=== PATIENT | female | born 1940 | race Caucasian/White ===

== ENCOUNTER 2018-06-03 09:38 | Day surgery (SDC) | payer MEDICARE, OTHER ==
[~2018-06-03 09:38] MED LIST: BALANCED SALT IRR; CEFAZOLIN 1 GM INJ; GENTAMICIN IRR; LIDOCAINE 2% (SDV) 5 ML INJ; VANCOMYCIN IRR; [UNRECOGNIZED DRUG - OTHER] IRR
[2018-06-03] MEDS ORDERED: LIDOCAINE 1% (MPF) 10 ML INJ (10:01)
[2018-06-03] MEDS ORDERED: LIDOCAINE 2% (SDV) 5 ML INJ (10:02)
[2018-06-03] MEDS ORDERED: TETRACAINE 0.5% 4 ML OPH (10:14)
[2018-06-03] MEDS ORDERED: BUPIVACAINE 0.5% (SDV) 30 ML INJ (10:14)
[2018-06-03] MEDS ORDERED: SODIUM HYALURONATE 14 MG/ML SYG (10:22)
[2018-06-03] MEDS ORDERED: HYALURONIDASE 150 UNIT/ML VIAL (10:30)
[2018-06-03] MEDS: TROPICAMIDE 1% 3 ML OPH OPER (10:38)
[2018-06-03] MEDS: CYCLOPENTOLATE 1% 2 ML OPH OPER (10:38)
[2018-06-03] MEDS: PHENYLephrine 2.5% 15 ML OPH OPER (10:39)
[2018-06-03] MEDS: MOXIFLOXACIN 0.5% 3 ML OPH OPER (10:39)
[2018-06-03] MEDS: PROPARACAINE 0.5% 15 ML OPH OPER (10:39)
[2018-06-03] MEDS ORDERED: TOBRAMYCIN 0.3% 3.5 GM OPH OINT (11:07)
[2018-06-03] MEDS: LIDOCAINE 1% (MPF) 10 ML INJ INJ (12:15)
[2018-06-03] MEDS: TOBRAMYCIN/DEXAMETH 3.5 GM OPH OINT RIGHT EYE (13:40)
[2018-06-03] MEDS ORDERED: HYDROmorphONE 1 MG/5 ML IV SYRINGE IV (14:00)
[2018-06-03] MEDS ORDERED: FENTAnyl 50 MCG/ML VIAL IV (14:00)
[2018-06-03] MEDS ORDERED: BSS PLUS 500 ML + VANCO 10MG, GENT 4 MG, EPI 0.25 MG IRR (14:00)
[2018-06-04] MEDS ORDERED: MOXIFLOXACIN 0.5% 3 ML OPH RIGHT EYE (09:00)
[2018-06-04] MEDS ORDERED: PREDNISOLONE ACET 1% 5 ML OPH RIGHT EYE (09:00)
[2018-06-04] MEDS ORDERED: PROPOFOL 20 ML (10:29)
[2018-06-04] MEDS ORDERED: MIDAZOLAM 1 MG/ML 2 ML INJ (10:29)
== END 2018-06-03 16:16 | disposition home or self-care (01) ==
LOC: SDS 09:38
DX: H25.11 Age-related nuclear cataract, right eye (principal); E78.5 Hyperlipidemia, unspecified; K21.9 Gastro-esophageal reflux disease without esophagitis; I11.0 Hypertensive heart disease with heart failure; I50.9 Heart failure, unspecified
CPT/HCPCS: 66984

== ENCOUNTER 2018-07-01 07:51 | Day surgery (SDC) | payer MEDICARE, OTHER ==
[2018-07-01 08:59] LABS: ADD MAN DIFF? NO
[2018-07-01] MEDS ORDERED: BALANCED SALT IRR (09:00)
[2018-07-01] MEDS ORDERED: GENTAMICIN IRR (09:00)
[2018-07-01] MEDS ORDERED: [UNRECOGNIZED DRUG - OTHER] IRR (09:00)
[2018-07-01] MEDS ORDERED: VANCOMYCIN IRR (09:00)
[2018-07-01 09:01] LABS: BASOPHIL # 0.1 10^3/ul (0.0-0.1); EOSINOPHILS # 0.1 10^3/ul (0.0-0.5); EOSINOPHILS % 1.5 % (0.0-7.0); HEMATOCRIT 40.4 % (37.0-47.0); HEMOGLOBIN 13.5 g/dl (12.0-16.0); LYMPHOCYTES # 2.2 10^3/ul (0.8-2.9); LYMPHOCYTES % 46.3 % (15.0-51.0); MEAN CORPUSCULAR HEMOGLOBIN 33.4 pg (29.0-33.0); MEAN CORPUSCULAR HGB CONC 33.4 g/dl (32.0-37.0); MEAN PLATELET VOLUME 10.4 fl (7.4-10.4); MONOCYTE # 0.5 10^3/ul (0.3-0.9); MONOCYTES % 9.5 % (0.0-11.0); NEUTROPHILS % 41.5 % (39.0-77.0); PLATELET COUNT 198 10^3/UL (140-415); RED BLOOD COUNT 4.04 10^6/ul (4.20-5.40); RED CELL DISTRIBUTION WIDTH 12.6 % (11.5-14.5)
[2018-07-01 09:01] LABS: WHITE BLOOD COUNT 4.8 10^3/ul (4.8-10.8)
[2018-07-01 09:19] LABS: ALANINE AMINOTRANSFERASE 21 IU/L (13-69); ALBUMIN/GLOBULIN RATIO 1.37; ALKALINE PHOSPHATASE 105 IU/L (42-121); ANION GAP 13 (8-16); ASPARTATE AMINO TRANSFERASE 22 IU/L (15-46); BILIRUBIN,INDIRECT 0.2 mg/dl (0-1.1); BILIRUBIN,TOTAL 0.2 mg/dl (0.2-1.3); BLOOD UREA NITROGEN 21 mg/dl (7-20); CALCIUM 9.4 mg/dl (8.4-10.2); CARBON DIOXIDE 25 mmol/L (21-31); CHLORIDE 111 mmol/L (97-110); CREATININE 0.58 mg/dl (0.44-1.00); GLUCOSE 101 mg/dl (70-220); POTASSIUM 4.1 mmol/L (3.5-5.1); SODIUM 145 mmol/L (135-144); TOTAL PROTEIN 6.9 g/dl (6.1-8.1)
[2018-07-01] MEDS: CYCLOPENTOLATE 1% 2 ML OPH OPER ×4 (09:31→09:59)
[2018-07-01] MEDS: PHENYLephrine 2.5% 15 ML OPH OPER ×4 (09:31→09:59)
[2018-07-01] MEDS: PROPARACAINE 0.5% 15 ML OPH OPER (09:36)
[2018-07-01] MEDS: MOXIFLOXACIN 0.5% 3 ML OPH OPER ×3 (09:39→09:59)
[2018-07-01] MEDS: TROPICAMIDE 1% 3 ML OPH OPER ×3 (09:39→09:59)
[2018-07-01 09:55] LABS: INR 0.84; PROTIME 11.6 Sec (11.9-14.9); PT RATIO 0.9
[2018-07-01 09:56] LABS: PARTIAL THROMBOPLASTIN TIME 28.4 Sec (25.0-35.0)
[2018-07-01] MEDS: LIDOCAINE 1% (MPF) 10 ML INJ INJ (10:15)
[2018-07-01] MEDS ORDERED: hydrALAzine 20 MG INJ IV (10:30)
[2018-07-01] MEDS ORDERED: METOCLOPRAMIDE 10 MG INJ IV (10:30)
[2018-07-01] MEDS ORDERED: MIDAZOLAM 1 MG/ML 2 ML INJ IV (10:30)
[2018-07-01] MEDS ORDERED: OXYCODONE/ACETAMINOPHEN (5/325) TAB PO ×2 (10:30)
[2018-07-01] MEDS ORDERED: LABETALOL HCL 20MG INJ IV (10:30)
[2018-07-01] MEDS ORDERED: ONDANSETRON 4 MG INJ IV (10:30)
[2018-07-01] MEDS ORDERED: EPHEDrine SULFATE 50 MG/5 ML SYG IV (10:30)
[2018-07-01] MEDS ORDERED: FENTAnyl 50 MCG/ML VIAL IV ×3 (10:30)
[2018-07-01] MEDS ORDERED: MEPERIDINE 25 MG INJ IV (10:30)
[2018-07-01] MEDS ORDERED: DIPHENHYDRAMINE 50 MG INJ IV (10:30)
[2018-07-01] MEDS ORDERED: BUPIVACAINE 0.5% (SDV) 30 ML INJ (10:37)
[2018-07-01] MEDS ORDERED: PROPOFOL 20 ML (10:37)
[2018-07-01] MEDS ORDERED: HYALURONIDASE 150 UNIT/ML VIAL ZFS (11:00)
[2018-07-01] MEDS ORDERED: FENTAnyl 50 MCG/ML VIAL (12:00)
[2018-07-01] MEDS: TOBRAMYCIN/DEXAMETH 3.5 GM OPH OINT LEFT EYE (12:25)
== END 2018-07-01 13:42 | disposition home or self-care (01) ==
LOC: SDS 07:51
DX: H25.12 Age-related nuclear cataract, left eye (principal); N17.9 Acute kidney failure, unspecified; F41.9 Anxiety disorder, unspecified
CPT/HCPCS: 66984; 80053; 85025; 85610; 85730